=== PATIENT | male | born 1975 | race Hispanic/Latino ===

== ENCOUNTER 2020-12-04 18:46 | Inpatient (IN) | payer OTHER ==
[~2020-12-04] VITALS: Ht 167.6 cm; Wt 111.4 kg
[2020-12-04 18:54] VITALS: BP 131/40
[2020-12-04 19:17] LABS: BASOPHILS % (AUTO) 0.7 % (0.0-5.0); EOSINOPHILS % (AUTO) 0.5 % (0.0-8.0); HEMATOCRIT 36.7 % (42-54); LYMPHOCYTES % (AUTO) 9.1 % (21.0-51.0); MEAN CORPUSCULAR HEMOGLOBIN 28.9 pg (27.0-33.0); MEAN CORPUSCULAR HGB CONC 33.2 g/dL (32.0-36.0); MONOCYTES % (AUTO) 3.3 % (3.0-13.0); NEUTROPHILS % (AUTO) 80.5 % (40.0-77.0); PLATELET COUNT (AUTO) 398 K/uL (130-400); RED BLOOD CELL COUNT(AUTO) 4.22 MIL/uL (4.50-6.20); RED CELL DISTRIBUTION WIDTH 14.1 % (11.0-15.5); WHITE BLOOD COUNT (AUTO) 21.2 K/uL (4.8-10.8)
[2020-12-04] MEDS ORDERED: KETOROLAC 60 MG VIAL (30MG/ML) IM ONE (19:30)
[2020-12-04 19:31] LABS: ALBUMIN 2.3 g/dL (3.5-5.0); BILIRUBIN,TOTAL 0.4 mg/dL (0.2-1.0); TOTAL PROTEIN, SERUM 6.8 g/dL (6.0-8.3)
[2020-12-04 19:40] LABS: CREATININE 21.7 mg/dL (0.5-1.5); POTASSIUM 6.5 mmol/L (3.5-5.1)
[2020-12-04] MEDS ORDERED: DEXTROSE 50%-WATER 25 GM/50 ML VIAL IV ONE (20:00)
[2020-12-04] MEDS ORDERED: KAYEXALATE 15GM/60ML PO NR (20:00)
[2020-12-04] MEDS ORDERED: 0.9%NACL 1000ML 1,000 ML IV ONE (20:00)
[2020-12-04] MEDS ORDERED: INSULIN HUMULIN R 100 UNIT/ML 3ML IV ONE (20:00)
[2020-12-04] MEDS ORDERED: CALCIUM GLUC 1GM VIAL IV SCH (20:00)
[2020-12-04] MEDS ORDERED: FUROSEMIDE 40 MG UD CUP PO ONE (20:00)
[2020-12-04] MEDS ORDERED: SODIUM BICARB 8.4% 50ML SYRINGE IVP ONE (20:00)
[2020-12-04] MEDS ORDERED: SODIUM BICARB 50MEQ 50ML VIAL 50 ML ONE (20:14)
[2020-12-04] MEDS ORDERED: DEXTROSE 50%-WATER 50 ML DISP.SYRIN IV ONE (20:14)
[2020-12-04] MEDS ORDERED: 0.9%NACL 100ML 100 ML ONE (20:15)
[2020-12-04] MEDS ORDERED: ALBUTEROL 0.083% 2.5 MG/3 ML INH IH ONE (20:17)
[2020-12-04] MEDS ORDERED: ZOLPIDEM TARTRATE 5 MG TAB PO PRN (22:00)
[2020-12-04] MEDS ORDERED: HYDRALAZINE 20MG/ML VIAL IV PRN (22:00)
[2020-12-04] MEDS ORDERED: MORPHINE 4 MG SYG IV PRN (22:00)
[2020-12-04 22:46] LABS: HEMOGLOBIN A1C 6.4 % (4.0-6.0)
[2020-12-04] MEDS: HYDROCODONE/ACETAMINOPHEN 5/325 MG TAB PO PRN (22:52)
[2020-12-04 23:07] LABS: POTASSIUM 5.1 mmol/L (3.5-5.1)
[2020-12-04] MEDS: ALBUTEROL 0.083% 2.5 MG/3 ML INH IH SCH (23:14)
[2020-12-04 23:41] VITALS: BP 97/52
[2020-12-05] VITALS (7 sets, daily range): BP systolic 101–136; BP diastolic 46–80
[2020-12-05] MEDS: 0.9%NACL 1000ML 1,000 ML IV SCH ×3 (01:16→12:55)
[2020-12-05] MEDS: HYDROCODONE/ACETAMINOPHEN 5/325 MG TAB PO PRN (03:25)
[2020-12-05 03:42] LABS: BASOPHILS % (AUTO) 0.8 % (0.0-5.0); EOSINOPHILS % (AUTO) 0.5 % (0.0-8.0); HEMATOCRIT 34.8 % (42-54); LYMPHOCYTES % (AUTO) 12.8 % (21.0-51.0); MEAN CORPUSCULAR HEMOGLOBIN 29.3 pg (27.0-33.0); MEAN CORPUSCULAR VOLUME 88.8 fL (79-99); MONOCYTES % (AUTO) 3.2 % (3.0-13.0); NEUTROPHILS % (AUTO) 75.2 % (40.0-77.0); PLATELET COUNT (AUTO) 391 K/uL (130-400); RED BLOOD CELL COUNT(AUTO) 3.92 MIL/uL (4.50-6.20); RED CELL DISTRIBUTION WIDTH 14.4 % (11.0-15.5); WHITE BLOOD COUNT (AUTO) 18.1 K/uL (4.8-10.8)
[2020-12-05 03:57] LABS: MAGNESIUM 2.9 mg/dL (1.80-2.40)
[2020-12-05] MEDS ORDERED: KAYEXALATE 15GM/60ML ONE (04:38)
[2020-12-05] MEDS ORDERED: KAYEXALATE 15GM/60ML PO ONE (05:00)
[2020-12-05] MEDS: ALBUTEROL 0.083% 2.5 MG/3 ML INH IH SCH ×4 (07:45→23:34)
[2020-12-05] MEDS ORDERED: INSULIN HUMULIN R 100 UNIT/ML 3ML SQ ONE (08:00)
[2020-12-05] MEDS ORDERED: DEXTROSE 50%-WATER 50 ML DISP.SYRIN IV ONE (08:00)
[2020-12-05] MEDS: NICOTINE 14 MG/ 24 HR PATCH TD SCH (08:27)
[2020-12-05] MEDS: ZOSYN 3.375GM+NS 50ML 50 ML IV SCH ×2 (08:27→21:29)
[2020-12-05] MEDS: FAMOTIDINE 20MG TAB PO SCH (08:28)
[2020-12-05] MEDS: HEPARIN 5,000 UNIT VIAL SQ SCH ×2 (08:29→21:30)
[2020-12-05 08:49] LABS: INR 1.06 (0.85-1.15); PROTHROMBIN TIME 11.5 SEC (9.6-11.6)
[2020-12-05] MEDS ORDERED: ACETAMINOPHEN 500 MG TABLET ONE (12:42)
[2020-12-05] MEDS: ACETAMINOPHEN 500 MG TABLET PO PRN (13:15)
[2020-12-06] VITALS (17 sets, daily range): BP systolic 109–148; BP diastolic 50–77
[2020-12-06] MEDS: 0.9%NACL 1000ML 1,000 ML IV SCH ×4 (00:09→20:31)
[2020-12-06] MEDS: ACETAMINOPHEN 500 MG TABLET PO PRN ×3 (00:22→22:54)
[2020-12-06 04:10] LABS: BASOPHILS % (AUTO) 0.5 % (0.0-5.0); EOSINOPHILS % (AUTO) 0.4 % (0.0-8.0); HEMATOCRIT 31.3 % (42-54); LYMPHOCYTES % (AUTO) 8.7 % (21.0-51.0); MEAN CORPUSCULAR HEMOGLOBIN 29.3 pg (27.0-33.0); MEAN CORPUSCULAR HGB CONC 33.2 g/dL (32.0-36.0); MEAN CORPUSCULAR VOLUME 88.2 fL (79-99); MONOCYTES % (AUTO) 3.3 % (3.0-13.0); NEUTROPHILS % (AUTO) 81.1 % (40.0-77.0); PLATELET COUNT (AUTO) 308 K/uL (130-400); RED BLOOD CELL COUNT(AUTO) 3.55 MIL/uL (4.50-6.20); RED CELL DISTRIBUTION WIDTH 14.2 % (11.0-15.5); WHITE BLOOD COUNT (AUTO) 14.9 K/uL (4.8-10.8)
[2020-12-06 04:28] LABS: POTASSIUM 5.5 mmol/L (3.5-5.1)
[2020-12-06] MEDS: ALBUTEROL 0.083% 2.5 MG/3 ML INH IH SCH ×2 (06:47→11:15)
[2020-12-06] MEDS: HEPARIN 5,000 UNIT VIAL SQ SCH ×2 (09:00→20:23)
[2020-12-06] MEDS ORDERED: LIDOCAINE HCL 1% MDV 50ML VIAL ONE (09:10)
[2020-12-06] MEDS ORDERED: HEPARIN 1,000 UNIT VIAL ONE (09:10)
[2020-12-06 09:14] LABS: CHOLESTEROL 124 mg/dL (<200); HDL CHOLESTEROL 22 mg/dL (29-71); LDL DIRECT 90 mg/dL (0-99); TRIGLYCERIDES 180 mg/dL (30-200)
[2020-12-06 09:20] LABS: HEMOGLOBIN A1C 6.4 % (4.0-6.0)
[2020-12-06 10:37] LABS: % IRON SATURATION 54.6 % (30-44)
[2020-12-06] MEDS: ZOSYN 3.375GM+NS 50ML 50 ML IV SCH ×2 (11:01→20:25)
[2020-12-06] MEDS: FAMOTIDINE 20MG TAB PO SCH (11:03)
[2020-12-06] MEDS: NICOTINE 14 MG/ 24 HR PATCH TD SCH (11:03)
[2020-12-06] MEDS ORDERED: ACETAMINOPHEN WITH CODEINE 1 TAB TAB PO SCH (12:30)
[2020-12-06] MEDS ORDERED: 0.9%NACL 1000ML 1,000 ML IV PRN (13:30)
[2020-12-06] MEDS ORDERED: HEPARIN 5,000 UNIT VIAL IJ PRN (13:30)
[2020-12-07] VITALS (17 sets, daily range): BP systolic 104–149; BP diastolic 55–91
[2020-12-07] MEDS: ALBUTEROL 0.083% 2.5 MG/3 ML INH IH SCH (00:03)
[2020-12-07] MEDS: 0.9%NACL 1000ML 1,000 ML IV SCH (00:04)
[2020-12-07 08:14] LABS: HEPATITIS Bs ANTIGEN SCREEN P Negative (Negative)
[2020-12-07] MEDS: HEPARIN 5,000 UNIT VIAL SQ SCH ×2 (09:00→21:13)
[2020-12-07] MEDS: NICOTINE 14 MG/ 24 HR PATCH TD SCH (10:37)
[2020-12-07] MEDS: FAMOTIDINE 20MG TAB PO SCH (10:37)
[2020-12-07] MEDS ORDERED: ONDANSETRON 4MG INJ ONE (12:38)
[2020-12-07] MEDS: ONDANSETRON 4MG INJ IVP PRN ×2 (12:43→18:31)
[2020-12-07 12:56] LABS: POTASSIUM 3.6 mmol/L (3.5-5.1)
[2020-12-07 13:04] LABS: CREATININE 11.6 mg/dL (0.5-1.5)
[2020-12-07] MEDS: ACETAMINOPHEN 500 MG TABLET PO PRN ×2 (13:46→20:29)
[2020-12-07] MEDS ORDERED: TRAMADOL HCL 50 MG TABLET PO SCH (16:30)
[2020-12-08] MEDS: ALBUTEROL 0.083% 2.5 MG/3 ML INH IH SCH ×3 (00:17→18:07)
[2020-12-08 04:09] VITALS: BP 159/76
[2020-12-08 04:26] LABS: BASOPHILS % (AUTO) 0.5 % (0.0-5.0); EOSINOPHILS % (AUTO) 1.3 % (0.0-8.0); HEMATOCRIT 31.9 % (42-54); LYMPHOCYTES % (AUTO) 12.9 % (21.0-51.0); MEAN CORPUSCULAR HEMOGLOBIN 29.4 pg (27.0-33.0); MEAN CORPUSCULAR HGB CONC 33.2 g/dL (32.0-36.0); MEAN CORPUSCULAR VOLUME 88.4 fL (79-99); NEUTROPHILS % (AUTO) 74.7 % (40.0-77.0); PLATELET COUNT (AUTO) 234 K/uL (130-400); RED BLOOD CELL COUNT(AUTO) 3.61 MIL/uL (4.50-6.20); RED CELL DISTRIBUTION WIDTH 14.2 % (11.0-15.5); WHITE BLOOD COUNT (AUTO) 13.5 K/uL (4.8-10.8)
[2020-12-08 04:50] LABS: PHOSPHORUS 7.4 mg/dL (2.5-4.9); POTASSIUM 4.2 mmol/L (3.5-5.1)
[2020-12-08 05:00] LABS: CREATININE 14.3 mg/dL (0.5-1.5)
[2020-12-08 08:00] VITALS: BP 130/47
[2020-12-08] MEDS: FAMOTIDINE 20MG TAB PO SCH (08:09)
[2020-12-08] MEDS: NICOTINE 14 MG/ 24 HR PATCH TD SCH (08:11)
[2020-12-08] MEDS: HEPARIN 5,000 UNIT VIAL SQ SCH ×2 (08:29→20:04)
[2020-12-08 08:47] LABS: APPEARANCE,URINE Clear (CLEAR); BILIRUBIN,URINE Negative (NEGATIVE); COLOR,URINE Yellow (YELLOW); GLUCOSE, URINE (UA) Negative (NEGATIVE); KETONES,URINE Negative (NEGATIVE); LEUKOCYTE ESTERASE ,URINE Large (NEGATIVE); NITRATE,URINE Negative (NEGATIVE); OCCULT BLOOD,URINE Large (NEGATIVE); PH,URINE 6.5 (5.0-8.0); PROTEIN,URINE POS 2+ mg/dL (NEGATIVE); UROBILINOGEN,URINE 0.2 mg/dL (0.2-1.0)
[2020-12-08 08:55] LABS: AMPHET/METH SCREEN,URINE NEGATIVE (NEGATIVE); BARBITURATE SCREEN, URINE NEGATIVE (NEGATIVE); BENZODIAZEPINES SCREEN,URINE NEGATIVE (NEGATIVE); CANNABINOID SCREEN,URINE NEGATIVE (NEGATIVE); COCAINE SCREEN,URINE POSITIVE (NEGATIVE); OPIATE SCREEN,URINE NEGATIVE (NEGATIVE); PHENCYCLIDINE SCREEN,URINE NEGATIVE (NEGATIVE)
[2020-12-08 09:06] LABS: BACTERIA,URINE Few /HPF (None Seen)
[2020-12-08 12:00] VITALS: BP 133/55
[2020-12-08] MEDS: ONDANSETRON 4MG INJ IVP PRN (15:55)
[2020-12-08 16:00] VITALS: BP 116/55
[2020-12-08 19:35] VITALS: BP 111/54
[2020-12-08] MEDS: ACETAMINOPHEN 500 MG TABLET PO PRN (20:55)
[2020-12-09] VITALS (20 sets, daily range): BP systolic 117–164; BP diastolic 55–87
[2020-12-09] MEDS: ALBUTEROL 0.083% 2.5 MG/3 ML INH IH SCH ×4 (00:56→18:00)
[2020-12-09 06:27] LABS: BASOPHILS % (AUTO) 0.3 % (0.0-5.0); EOSINOPHILS % (AUTO) 0.7 % (0.0-8.0); HEMATOCRIT 28.7 % (42-54); LYMPHOCYTES % (AUTO) 9.3 % (21.0-51.0); MEAN CORPUSCULAR HEMOGLOBIN 29.2 pg (27.0-33.0); MEAN CORPUSCULAR HGB CONC 33.4 g/dL (32.0-36.0); MEAN CORPUSCULAR VOLUME 87.2 fL (79-99); NEUTROPHILS % (AUTO) 82.6 % (40.0-77.0); PLATELET COUNT (AUTO) 209 K/uL (130-400); RED BLOOD CELL COUNT(AUTO) 3.29 MIL/uL (4.50-6.20); RED CELL DISTRIBUTION WIDTH 14.1 % (11.0-15.5); WHITE BLOOD COUNT (AUTO) 15.6 K/uL (4.8-10.8)
[2020-12-09 06:51] LABS: PHOSPHORUS 8.9 mg/dL (2.5-4.9); POTASSIUM 4.2 mmol/L (3.5-5.1)
[2020-12-09 07:02] LABS: CREATININE 17.4 mg/dL (0.5-1.5)
[2020-12-09] MEDS: FAMOTIDINE 20MG TAB PO SCH (08:36)
[2020-12-09] MEDS: NICOTINE 14 MG/ 24 HR PATCH TD SCH (08:36)
[2020-12-09] MEDS: HEPARIN 5,000 UNIT VIAL SQ SCH ×2 (08:38→21:37)
[2020-12-09] MEDS ORDERED: MAG/ALUM/SIMETH 30 ML UDCUP ONE (18:19)
[2020-12-09] MEDS: MAG/ALUM/SIMETH 30 ML UDCUP PO PRN (18:27)
[2020-12-10 04:00] VITALS: BP 124/80
[2020-12-10] MEDS: ALBUTEROL 0.083% 2.5 MG/3 ML INH IH SCH (06:00)
[2020-12-10 08:00] VITALS: BP 132/68
[2020-12-10] MEDS: FAMOTIDINE 20MG TAB PO SCH (08:57)
[2020-12-10] MEDS: NICOTINE 14 MG/ 24 HR PATCH TD SCH (08:57)
[2020-12-10] MEDS: HEPARIN 5,000 UNIT VIAL SQ SCH ×2 (08:58→20:59)
[2020-12-10 12:00] VITALS: BP 124/55
[2020-12-10] MEDS: ACETAMINOPHEN 500 MG TABLET PO PRN (15:00)
[2020-12-10 16:00] VITALS: BP 129/62
[2020-12-10 20:00] VITALS: BP 127/62
[2020-12-10 23:53] VITALS: BP 138/69
[2020-12-11 04:00] VITALS: BP 128/57
[2020-12-11 04:18] LABS: HEMATOCRIT 28.6 % (42-54); MEAN CORPUSCULAR HEMOGLOBIN 28.9 pg (27.0-33.0); MEAN CORPUSCULAR HGB CONC 32.5 g/dL (32.0-36.0); MEAN CORPUSCULAR VOLUME 88.8 fL (79-99); PLATELET COUNT (AUTO) 209 K/uL (130-400); RED BLOOD CELL COUNT(AUTO) 3.22 MIL/uL (4.50-6.20); RED CELL DISTRIBUTION WIDTH 13.6 % (11.0-15.5); WHITE BLOOD COUNT (AUTO) 18.7 K/uL (4.8-10.8)
[2020-12-11 04:32] LABS: PHOSPHORUS 8.5 mg/dL (2.5-4.9); POTASSIUM 4.4 mmol/L (3.5-5.1)
[2020-12-11 04:38] LABS: CREATININE 14.3 mg/dL (0.5-1.5)
[2020-12-11 05:09] LABS: BAND NEUTROPHILS % (MANUAL) 2 % (0-2); EOSINOPHILS % (MANUAL) 1 % (1-6); LYMPHOCYTES % (MANUAL) 7 % (22-44); MAN.DIFF COMMENT-IMPRESSION MANUAL DIFFERENTIAL; MONOCYTES % (MANUAL) 3 % (2-9); PLATELET MORPHOLOGY COMMENT ADEQUATE; SEGMENTED NEUTROPHILS % 87 % (40-70)
[2020-12-11 07:47] VITALS: BP 137/62
[2020-12-11] MEDS: HEPARIN 5,000 UNIT VIAL SQ SCH ×2 (08:41→20:27)
[2020-12-11] MEDS: NICOTINE 14 MG/ 24 HR PATCH TD SCH (08:44)
[2020-12-11] MEDS: FAMOTIDINE 20MG TAB PO SCH (08:44)
[2020-12-11 11:14] VITALS: BP 131/64
[2020-12-11 15:58] VITALS: BP 143/65
[2020-12-11 19:52] VITALS: BP 135/76
[2020-12-11] MEDS: MAG/ALUM/SIMETH 30 ML UDCUP PO PRN (23:24)
[2020-12-11] MEDS: ONDANSETRON 4MG INJ IVP PRN (23:50)
[2020-12-11 23:56] VITALS: BP 127/83
[2020-12-12 03:49] LABS: HEMATOCRIT 29.6 % (42-54); MEAN CORPUSCULAR HEMOGLOBIN 29.6 pg (27.0-33.0); MEAN CORPUSCULAR HGB CONC 33.4 g/dL (32.0-36.0); MEAN CORPUSCULAR VOLUME 88.6 fL (79-99); PLATELET COUNT (AUTO) 271 K/uL (130-400); RED BLOOD CELL COUNT(AUTO) 3.34 MIL/uL (4.50-6.20); RED CELL DISTRIBUTION WIDTH 13.7 % (11.0-15.5); WHITE BLOOD COUNT (AUTO) 21.3 K/uL (4.8-10.8)
[2020-12-12 03:58] VITALS: BP 136/80
[2020-12-12 04:09] LABS: POTASSIUM 4.6 mmol/L (3.5-5.1)
[2020-12-12 04:19] LABS: CREATININE 15.9 mg/dL (0.5-1.5)
[2020-12-12 05:12] LABS: LYMPHOCYTES % (MANUAL) 13 % (22-44); MAN.DIFF COMMENT-IMPRESSION MANUAL DIFFERENTIAL; SEGMENTED NEUTROPHILS % 87 % (40-70)
[2020-12-12 05:13] LABS: PLATELET MORPHOLOGY COMMENT ADEQUATE
[2020-12-12 07:53] VITALS: BP 118/69
[2020-12-12] MEDS: FAMOTIDINE 20MG TAB PO SCH (09:44)
[2020-12-12] MEDS: NICOTINE 14 MG/ 24 HR PATCH TD SCH (09:44)
[2020-12-12] MEDS: HEPARIN 5,000 UNIT VIAL SQ SCH ×2 (09:50→20:36)
[2020-12-12 11:05] VITALS: BP 128/66
[2020-12-12 15:41] VITALS: BP 117/69
[2020-12-12] MEDS: ZOSYN 3.375GM +NS 50ML IV SCH (19:14)
[2020-12-12] MEDS: 0.9%NACL 50ML IV SCH (19:14)
[2020-12-12 20:21] VITALS: BP 125/56
[2020-12-13] VITALS (20 sets, daily range): BP systolic 124–159; BP diastolic 66–93
[2020-12-13 04:28] LABS: POTASSIUM 4.8 mmol/L (3.5-5.1)
[2020-12-13 04:39] LABS: CREATININE 16.8 mg/dL (0.5-1.5)
[2020-12-13] MEDS: 0.9%NACL 50ML IV SCH ×2 (05:40→18:21)
[2020-12-13] MEDS: ZOSYN 3.375GM +NS 50ML IV SCH ×2 (05:40→18:21)
[2020-12-13 06:40] LABS: BASOPHILS % (AUTO) 0.4 % (0.0-5.0); EOSINOPHILS % (AUTO) 1.4 % (0.0-8.0); HEMATOCRIT 27.5 % (42-54); LYMPHOCYTES % (AUTO) 9.8 % (21.0-51.0); MEAN CORPUSCULAR HEMOGLOBIN 29.6 pg (27.0-33.0); MEAN CORPUSCULAR HGB CONC 32.7 g/dL (32.0-36.0); MEAN CORPUSCULAR VOLUME 90.5 fL (79-99); MONOCYTES % (AUTO) 4.5 % (3.0-13.0); NEUTROPHILS % (AUTO) 82.4 % (40.0-77.0); PLATELET COUNT (AUTO) 284 K/uL (130-400); RED BLOOD CELL COUNT(AUTO) 3.04 MIL/uL (4.50-6.20); RED CELL DISTRIBUTION WIDTH 13.8 % (11.0-15.5); WHITE BLOOD COUNT (AUTO) 17.7 K/uL (4.8-10.8)
[2020-12-13] MEDS: NICOTINE 14 MG/ 24 HR PATCH TD SCH (08:56)
[2020-12-13] MEDS: FAMOTIDINE 20MG TAB PO SCH (08:56)
[2020-12-13] MEDS: HEPARIN 5,000 UNIT VIAL SQ SCH ×2 (09:00→14:43)
[2020-12-14] VITALS (7 sets, daily range): BP systolic 116–149; BP diastolic 63–89
[2020-12-14] MEDS: ONDANSETRON 4MG INJ IVP PRN (01:44)
[2020-12-14 05:32] LABS: BASOPHILS % (AUTO) 0.4 % (0.0-5.0); EOSINOPHILS % (AUTO) 2.3 % (0.0-8.0); HEMATOCRIT 27.7 % (42-54); LYMPHOCYTES % (AUTO) 12.3 % (21.0-51.0); MEAN CORPUSCULAR HEMOGLOBIN 28.8 pg (27.0-33.0); MEAN CORPUSCULAR HGB CONC 32.1 g/dL (32.0-36.0); MEAN CORPUSCULAR VOLUME 89.6 fL (79-99); PLATELET COUNT (AUTO) 286 K/uL (130-400); RED BLOOD CELL COUNT(AUTO) 3.09 MIL/uL (4.50-6.20); RED CELL DISTRIBUTION WIDTH 13.7 % (11.0-15.5); WHITE BLOOD COUNT (AUTO) 12.8 K/uL (4.8-10.8)
[2020-12-14] MEDS: ZOSYN 3.375GM +NS 50ML IV SCH ×2 (05:35→17:47)
[2020-12-14] MEDS: 0.9%NACL 50ML IV SCH ×2 (05:36→17:47)
[2020-12-14 05:55] LABS: POTASSIUM 4.4 mmol/L (3.5-5.1)
[2020-12-14 05:57] LABS: CREATININE 10.6 mg/dL (0.5-1.5)
[2020-12-14] MEDS: FAMOTIDINE 20MG TAB PO SCH (09:09)
[2020-12-14] MEDS: NICOTINE 14 MG/ 24 HR PATCH TD SCH (09:11)
[2020-12-14] MEDS: HEPARIN 5,000 UNIT VIAL SQ SCH ×2 (09:16→21:00)
[2020-12-15 04:00] VITALS: BP 143/78
[2020-12-15] MEDS: ZOSYN 3.375GM +NS 50ML IV SCH ×2 (05:31→17:33)
[2020-12-15] MEDS: 0.9%NACL 50ML IV SCH ×2 (05:32→17:32)
[2020-12-15 07:32] LABS: BASOPHILS % (AUTO) 0.6 % (0.0-5.0); EOSINOPHILS % (AUTO) 2.6 % (0.0-8.0); HEMATOCRIT 28.9 % (42-54); LYMPHOCYTES % (AUTO) 15.2 % (21.0-51.0); MEAN CORPUSCULAR HEMOGLOBIN 29.1 pg (27.0-33.0); MEAN CORPUSCULAR HGB CONC 31.8 g/dL (32.0-36.0); MEAN CORPUSCULAR VOLUME 91.5 fL (79-99); MONOCYTES % (AUTO) 7.5 % (3.0-13.0); NEUTROPHILS % (AUTO) 73.4 % (40.0-77.0); PLATELET COUNT (AUTO) 319 K/uL (130-400); RED BLOOD CELL COUNT(AUTO) 3.16 MIL/uL (4.50-6.20); RED CELL DISTRIBUTION WIDTH 13.6 % (11.0-15.5); WHITE BLOOD COUNT (AUTO) 12.2 K/uL (4.8-10.8)
[2020-12-15 07:43] LABS: POTASSIUM 4.5 mmol/L (3.5-5.1)
[2020-12-15 07:53] VITALS: BP 135/72
[2020-12-15 08:05] LABS: CREATININE 11.5 mg/dL (0.5-1.5)
[2020-12-15] MEDS: FAMOTIDINE 20MG TAB PO SCH (08:58)
[2020-12-15] MEDS: NICOTINE 14 MG/ 24 HR PATCH TD SCH (08:58)
[2020-12-15] MEDS: HEPARIN 5,000 UNIT VIAL SQ SCH ×2 (08:59→22:58)
[2020-12-15 11:18] VITALS: BP 134/65
[2020-12-15 16:14] VITALS: BP 121/86
[2020-12-15 20:17] VITALS: BP 133/67
[2020-12-15 23:48] VITALS: BP 112/65
[2020-12-16] VITALS (21 sets, daily range): BP systolic 105–168; BP diastolic 45–87
[2020-12-16 06:30] LABS: BASOPHILS % (AUTO) 0.5 % (0.0-5.0); EOSINOPHILS % (AUTO) 2.9 % (0.0-8.0); HEMATOCRIT 27.5 % (42-54); LYMPHOCYTES % (AUTO) 19.7 % (21.0-51.0); MEAN CORPUSCULAR HEMOGLOBIN 29.3 pg (27.0-33.0); MEAN CORPUSCULAR HGB CONC 32.4 g/dL (32.0-36.0); MEAN CORPUSCULAR VOLUME 90.5 fL (79-99); MONOCYTES % (AUTO) 5.5 % (3.0-13.0); PLATELET COUNT (AUTO) 325 K/uL (130-400); RED BLOOD CELL COUNT(AUTO) 3.04 MIL/uL (4.50-6.20); RED CELL DISTRIBUTION WIDTH 13.5 % (11.0-15.5)
[2020-12-16 06:48] LABS: POTASSIUM 4.1 mmol/L (3.5-5.1)
[2020-12-16 06:50] LABS: CREATININE 10.3 mg/dL (0.5-1.5)
[2020-12-16] MEDS: ZOSYN 3.375GM +NS 50ML IV SCH ×2 (13:06→17:39)
[2020-12-16] MEDS: NICOTINE 14 MG/ 24 HR PATCH TD SCH (13:07)
[2020-12-16] MEDS: HEPARIN 5,000 UNIT VIAL SQ SCH ×2 (13:10→21:49)
[2020-12-16] MEDS: FAMOTIDINE 20MG TAB PO SCH (13:13)
[2020-12-16] MEDS: 0.9%NACL 50ML IV SCH (17:40)
[2020-12-16] MEDS: ONDANSETRON 4MG INJ IVP PRN (21:48)
[2020-12-17 04:12] VITALS: BP 115/69
[2020-12-17 05:03] LABS: BASOPHILS % (AUTO) 0.7 % (0.0-5.0); EOSINOPHILS % (AUTO) 2.5 % (0.0-8.0); HEMATOCRIT 31.2 % (42-54); LYMPHOCYTES % (AUTO) 15.8 % (21.0-51.0); MEAN CORPUSCULAR HEMOGLOBIN 29.1 pg (27.0-33.0); MEAN CORPUSCULAR HGB CONC 31.4 g/dL (32.0-36.0); MEAN CORPUSCULAR VOLUME 92.6 fL (79-99); MONOCYTES % (AUTO) 7.1 % (3.0-13.0); NEUTROPHILS % (AUTO) 73.3 % (40.0-77.0); PLATELET COUNT (AUTO) 340 K/uL (130-400); RED BLOOD CELL COUNT(AUTO) 3.37 MIL/uL (4.50-6.20); RED CELL DISTRIBUTION WIDTH 13.3 % (11.0-15.5); WHITE BLOOD COUNT (AUTO) 13.4 K/uL (4.8-10.8)
[2020-12-17 05:17] LABS: PHOSPHORUS 9.9 mg/dL (2.5-4.9); POTASSIUM 4.5 mmol/L (3.5-5.1)
[2020-12-17 05:37] LABS: CREATININE 8.4 mg/dL (0.5-1.5)
[2020-12-17] MEDS: ZOSYN 3.375GM +NS 50ML IV SCH ×2 (06:04→18:41)
[2020-12-17] MEDS: 0.9%NACL 50ML IV SCH ×2 (06:04→18:41)
[2020-12-17] MEDS: ONDANSETRON 4MG INJ IVP PRN (06:04)
[2020-12-17 06:48] VITALS: BP 123/58
[2020-12-17] MEDS: FAMOTIDINE 20MG TAB PO SCH (08:59)
[2020-12-17] MEDS: NICOTINE 14 MG/ 24 HR PATCH TD SCH (09:02)
[2020-12-17] MEDS: HEPARIN 5,000 UNIT VIAL SQ SCH ×2 (09:12→21:16)
[2020-12-17 11:44] VITALS: BP 132/79
[2020-12-17 16:35] VITALS: BP 103/48
[2020-12-17 20:00] VITALS: BP 95/50
[2020-12-17 23:41] VITALS: BP 101/50
[2020-12-18 03:56] VITALS: BP 117/54
[2020-12-18 04:33] LABS: BASOPHILS % (AUTO) 0.7 % (0.0-5.0); EOSINOPHILS % (AUTO) 2.6 % (0.0-8.0); LYMPHOCYTES % (AUTO) 23.2 % (21.0-51.0); MEAN CORPUSCULAR HEMOGLOBIN 29.1 pg (27.0-33.0); MEAN CORPUSCULAR HGB CONC 31.8 g/dL (32.0-36.0); MEAN CORPUSCULAR VOLUME 91.5 fL (79-99); MONOCYTES % (AUTO) 8.6 % (3.0-13.0); NEUTROPHILS % (AUTO) 64.4 % (40.0-77.0); PLATELET COUNT (AUTO) 300 K/uL (130-400); RED BLOOD CELL COUNT(AUTO) 3.06 MIL/uL (4.50-6.20); RED CELL DISTRIBUTION WIDTH 13.2 % (11.0-15.5); WHITE BLOOD COUNT (AUTO) 10.2 K/uL (4.8-10.8)
[2020-12-18 05:01] LABS: POTASSIUM 3.8 mmol/L (3.5-5.1)
[2020-12-18 05:21] LABS: CREATININE 8.9 mg/dL (0.5-1.5)
[2020-12-18] MEDS: 0.9%NACL 50ML IV SCH ×2 (05:31→18:30)
[2020-12-18] MEDS: ZOSYN 3.375GM +NS 50ML IV SCH (05:31)
[2020-12-18 08:00] VITALS: BP 100/49
[2020-12-18] MEDS: NICOTINE 14 MG/ 24 HR PATCH TD SCH (10:03)
[2020-12-18] MEDS: FAMOTIDINE 20MG TAB PO SCH (10:04)
[2020-12-18 12:00] VITALS: BP 119/79
[2020-12-18] MEDS ORDERED: SEVE800T27 PO (14:50)
== END 2020-12-18 20:45 | disposition home or self-care (01) | DRG 683 ==
LOC: EDH 18:46 → EDHIP 18:47 → 4AH 12-05 00:21 → 4CH 12-15 15:59
PROVIDERS: ADMIT Internal Medicine; ATTEND Internal Medicine
PROC: 02HV33Z Insertion of Infusion Device into Superior Vena Cava, Percutaneous Approach (ICD-10-PCS; principal; 2020-12-06)
PROC: B548ZZA Ultrasonography of Superior Vena Cava, Guidance (ICD-10-PCS; 2020-12-06)
PROC: 5A1D70Z Performance of Urinary Filtration, Intermittent, Less than 6 Hours Per Day (ICD-10-PCS; 2020-12-06)
PROC: 5A1D70Z Performance of Urinary Filtration, Intermittent, Less than 6 Hours Per Day (ICD-10-PCS; 2020-12-07)
PROC: 5A1D70Z Performance of Urinary Filtration, Intermittent, Less than 6 Hours Per Day (ICD-10-PCS; 2020-12-09)
PROC: 5A1D70Z Performance of Urinary Filtration, Intermittent, Less than 6 Hours Per Day (ICD-10-PCS; 2020-12-13)
PROC: 5A1D70Z Performance of Urinary Filtration, Intermittent, Less than 6 Hours Per Day (ICD-10-PCS; 2020-12-16)
DX: N17.9 Acute kidney failure, unspecified (principal); M62.82 Rhabdomyolysis; E87.2 Acidosis; E87.5 Hyperkalemia; D72.829 Elevated white blood cell count, unspecified; K76.0 Fatty (change of) liver, not elsewhere classified; F17.210 Nicotine dependence, cigarettes, uncomplicated; D64.9 Anemia, unspecified; E11.21 Type 2 diabetes mellitus with diabetic nephropathy; E83.52 Hypercalcemia; I10 Essential (primary) hypertension; K42.9 Umbilical hernia without obstruction or gangrene; K44.9 Diaphragmatic hernia without obstruction or gangrene; M54.5 Low back pain; R53.81 Other malaise; W18.30XA Fall on same level, unspecified, initial encounter; Z90.49 Acquired absence of other specified parts of digestive tract; Z99.2 Dependence on renal dialysis; Y93.89 Activity, other specified; Y92.89 Other specified places as the place of occurrence of the external cause; Y99.8 Other external cause status
CPT/HCPCS: 36415; 36556; 70450; 70551; 71045; 72148; 74176; 76700; 76770; 77001; 80048; 80053; 80061; 80305; 81001; 82550; 82728; 82948; 83036; 83540; 83550; 83605; 83735; 84100; 84132; 84145; 84300; 84484; 85025; 85610; 86701; 86704; 86706; 86804; 87040; 87088; 87340; 87390; 87507; 87522; 87804; 90935; 93005; 93306; 93356; 93970; 94640; 94664; 97039; C1752; G0378; J0610; J1644; J1815; J2405; J2543; J3490; J7030; J7070